=== PATIENT | female | born 1990 | race Caucasian/White ===

== ENCOUNTER 2024-01-16 08:40 | Day surgery (SDC) | payer OTHER, SELFPAY ==
[2024-01-16] VITALS (18 sets, daily range): BP systolic 105–156; BP diastolic 55–83; PULSE 63–97; RESP 12–20; TEMP 36.4–36.8; O2SAT 96–100
--- NOTE | ~2024-01-16 | US_ITS ---
EXAMINATION: US OB <=14 wk fetus w TV DATE: 01/16/2024 10:55 INDICATION: Left-sided pelvic pain. Positive test. TECHNIQUE: Real-time pelvic ultrasound utilizing both a transvaginal and transabdominal probe was pe rformed. The interpreting radiologist was not present for the study. COMPARISON: None. FINDINGS: The uterus measures 7.7 x 3.6 x 3.8 cm. There is no evident intrauterine gestational sac. The right ovary measures 2.6 x 2.3 x 1.3 cm. 6 mm anechoic follicle at the right ovary along with int ernal vascular flow on color Doppler. The left ovary measures 3.4 x 2.4 x 3.3 cm. 1.7 cm centrally an echoic thick-walled likely corpus luteum cyst along with a few subcentimeter anechoic follicles in th e left ovary. There is an additional approximately 1.8 x 1.5 x 1.5 cm hypoechoic mass with 4 mm centr ally anechoic region situated between the left ovary and the uterus. There is a small amount of free fluid in the cul-de-sac which appears relatively anechoic but also at the bilateral adnexa and anteri or to the uterine fundus where there are low-level echoes suggesting possible complex fluid or hemope ritoneum. IMPRESSION: 1. No evident intrauterine gestational sac for which differential would include early, failed or ecto pic . There is a 1.8 cm hypoechoic, centrally anechoic mass situated between the left ovary and the uterus along raising concern for ectopic with greater than typical amount of free f luid in the pelvis with a few low-level echoes which also raises concern for secondary hemoperitoneum . Dr. Lopez discussed these findings with Dr. Marcia Valdivia at 11:13 AM. Reviewed, dictated and finalized at location B. IMPRESSION: 1. No evident intrauterine gestational sac for which differential would include early, failed or ectopic . There is a 1.8 cm hypoechoic, centrally an echoic mass situated between the left ovary and the uterus along raising concer n for ectopic with greater than typical amount of free fluid in the p tammy with a few low-level echoes which also raises concern for secondary hemop eritoneum. Dr. Lopez discussed these findings with Dr. Marcia Valdivia at 11:13 AM.
[2024-01-16 09:10] LABS: Basophils Percent Auto 0.4 % (0.2-1.2); Eosinophils Absolute Auto 0.1 K/mm3 (0-0.3); Eosinophils Percent Auto 0.9 % (0-4.4); Hematocrit 40.2 % (37.0-47.0); Hemoglobin 12.6 g/dL (12.0-15.0); Immature Granulocyte Absolute 0.01 K/mm3 (0.00-0.031); Immature Granulocyte Percent A 0.1 % (0-0.5); Lymphocytes Percent Auto 23.6 % (18.3-44.2); Mean Corpuscular HGB Conc 31.3 g/dl (32-36); Mean Corpuscular Hemoglobin 28.5 pg (26-34); Mean Platelet Volume 9.7 fl (7.4-10.4); Monocytes Absolute Auto 0.6 K/mm3 (0.1-0.6); Neutrophils Absolute Auto 4.5 K/mm3 (1.3-6.7); Platelet Count Result 359 k/mm3 (150-375); Red Blood Count 4.42 M/mm3 (4.2-5.4); Red Cell Distribution Width 13.2 % (11.5-14.5); White Blood Count 6.8 K/mm3 (4.5-10.0)
[2024-01-16 09:14] LABS: BEDSIDEPREGUCG Positive (Negative)
[2024-01-16 09:20] LABS: Alanine Aminotransferase 27 U/L (6-35); Albumin Level 4.1 g/dL (3.5-5.1); Alkaline Phosphatase 89 U/L (38-126); Anion Gap 9 mmol/L (4-12); Aspartate Amino Transferase 33 U/L (14-36); Bilirubin,Total 0.2 mg/dL (0.2-1.3); Blood Urea Nitrogen 8 mg/dL (7-17); Calcium 9.1 mg/dL (8.4-10.2); Carbon Dioxide 27 mmol/L (22-30); Chloride 100 mmol/L (98-107); Estimated CRCL calculation 157 ml/min; Estimated Glomerular Filt Rate > 60; Glucose 99 mg/dL (65-110); Lipase 44 U/L (23-300); Potassium 4.1 mmol/L (3.4-5.0); Sodium 136 mmol/L (137-145)
[2024-01-16 09:25] LABS: Bacteria Urine None Seen /hpf; Non Pathogenic Casts 0-2; RBC Urine >100 /hpf (0-2); Squamous Epithelial Cell Urine None Seen /hpf (Few); WBC Urine 0-5 /hpf (0-3)
[2024-01-16 09:47] LABS: Beta HCG Quantitative 258.94 mIU/ML
--- NOTE | 2024-01-16 09:58 | ED.ABDPAIN ---
HPI - Abdominal Pain General Chief Complaint: Abdominal Pain <STEVO Calzada Last Filed: 01/16/24 18:41> Stated Complaint: abd pain <STEVO Calzada Last Filed: 01/16/24 18:41> Time Seen by Provider: 01/16/24 09:06 <STEVO Calzada Last Filed: 01/16/24 18:41> Source: patient <STEVO Calzada Last Filed: 01/16/24 18:41> Mode of arrival: ambulatory <STEVO Calzada Last Filed: 01/16/24 18:41> Limitations: no limitations <STEVO Calzada Last Filed: 01/16/24 18:41> History of Present Illness HPI narrative: This is a 33 year old that presents to the ER for left lower quadrant abdominal pain. Ongoing over the last couple of days. The pain is constant in nature and cramping. Reports she was concerned she may have an ovarian cyst. Her CHILD CARE DEVELOPMENT SPECIALIST is Dr. Neal. Found to have a positive test today. Reports she is currently bleeding. Reports some dysuria. Denies fever, vomiting, hematuria. <Marcai Valdivia PA-C - Last Filed: 01/16/24 18:41> Related Data Home Medications: Home Medications Medication Instructions Recorded Confirmed albuterol sulfate 90 mcg/actuation 1 puff inhalation Q4H PRN 02/06/20 07/24/23 aerosol inhaler gtcevjpd-vgp-nlhf-FA-Ca carb-vit K 1 tablet PO DAILY 07/18/22 07/24/23 18 mg iron-400 mcg-500 mg tablet (One-A-Day Womens Formula) <STEVO Calzada Last Filed: 01/16/24 18:41> Allergies/Adverse Reactions: Allergies Allergy/AdvReac Type Severity Reaction Status Date / Time adhesive Allergy Mild Rash Verified 01/16/24 14:06 bacitracin Allergy Mild Rash Verified 01/16/24 14:06 [From Neosporin Plus PainRelief(miri)] neomycin Allergy Mild Rash Verified 01/16/24 14:06 [From Neosporin Plus PainRelief(miri)] polymyxin B Allergy Mild Rash Verified 01/16/24 14:06 [From Neosporin Plus PainRelief(miri)] pramoxine Allergy Mild Rash Verified 01/16/24 14:06 [From Neosporin Plus PainRelief(miri)] codeine Allergy Unknown Rash Verified 01/16/24 14:06 drospirenone [From [facility] (28)] Allergy Unknown Fainting Verified 01/16/24 14:06 ethinyl estradiol Allergy Unknown Fainting Verified 01/16/24 14:06 [From [facility] (28)] fentanyl Allergy Unknown Itching Verified 01/16/24 14:06 <Marcia Valdivia PA-C - Last Filed: 01/16/24 18:41> Review of Systems Review of Systems: CONSTITUTIONAL: Denies fever GASTROINTESTINAL: Reports abdominal pain. Denies nausea, vomiting, or diarrhea. GENITOURINARY: Reports dysuria. Denies hematuria. <Marcia Valdivia PA-C - Last Filed: 01/16/24 18:41> All systems reviewed & are unremarkable except as noted in HPI and below <Marcia Valdivia PA-C - Last Filed: 01/16/24 18:41> PMFSH Past Medical History Medical History: Medical History Back abscess cyst removed from back Headache Obesity (BMI 30.0-34.9) <Marcia Valdivia PA-C - Last Filed: 01/16/24 18:41> Surgical History Surgical History: Surgical History H/O sinus surgery Hx of cholecystectomy <Marcia Valdivia PA-C - Last Filed: 01/16/24 18:41> Family History Family History: Family History Mother Diabetes mellitus Grandparent Diabetes mellitus Cancer Grandparent Cancer <STEVO Calzada Last Filed: 01/16/24 18:41> Social History Social History: Social History Smoking status: Never smoker Second hand tobacco smoke exposure: Yes Alcohol intake: current Drinks per week: 3 Substance use: never Substance use type: does not use Do You Feel Safe in your Home?: Yes Lack of Transportation: No Lack of Food: Never True Current Housing: I Have Housing Concerned About Future Housing:
[2024-01-16 10:00] LABS: Add Urine Microscopic? YES; Appearance Urine Clear (Clear); Bilirubin Urine Negative (Negative); Blood Urine 3+ (Negative); Glucose Urine UA Negative (Negative); Ketones Urine Negative (Negative); Leukocyte Esterase Ur Trace LEU/UL (Negative); Nitrate Urine Negative (Negative); Protein Urine Trace mg/dL (Negative); Specific Grav Ur 1.005 (1.001-1.035); Urobilinogen Urine 0.2 mg/dL (<2.0)
[2024-01-16 10:02] LABS: Color Urine Light Red (Yellow)
--- NOTE | 2024-01-16 10:32 | PC.NURSE ---
Pt to U/S via w/c at this time. remains at bedside.
--- NOTE | 2024-01-16 13:34 | PC.NURSE ---
Report given to preop RN at this time. Patient will go to Preop Rm 10
--- NOTE | 2024-01-16 14:09 | PM.IMHP ---
H&P: HPI History of Present Illness Date/Time: 01/16/24 14:09 33-year-old female 002 currently on norethindrone for control presents emergency room with left lower quadrant pain. Upon evaluation was found to have hCG of approximately 250 and left potential tubal enlargement. She is in fair amount of discomfort, as also had some irregular bleeding. Denies nausea vomiting, dysuria frequency or urgency. Chief Complaint: abdominal pain Review of Systems Review of Systems: All systems reviewed & are unremarkable except as noted in HPI and below PMFSH Past Medical History Medical History Back abscess cyst removed from back Headache Obesity (BMI 30.0-34.9) Surgical History Surgical History H/O sinus surgery Hx of cholecystectomy Family History Family History Mother Diabetes mellitus Grandparent Diabetes mellitus Cancer Grandparent Cancer Social History Social History Smoking status: Never smoker Second hand tobacco smoke exposure: Yes Alcohol intake: current Drinks per week: 3 Substance use: never Substance use type: does not use Do You Feel Safe in your Home?: Yes Lack of Transportation: No Lack of Food: Never True Current Housing: I Have Housing Concerned About Future Housing: No Difficulty Paying Gas/Electric Bills: No Difficulty Paying for Meds: No Currently Unemployed: No Education: High School Diploma/GED Difficulty w/ Childcare or Family Care: No Living arrangements: other Additional living arrangements comments: Occupation/Education: occupation 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 Gender identity (if verbalized by the patient): Female Sexual Orientation (if Verbalized by the Patient): Straight or Heterosexual Meds Home Medications and Allergies Home Medications Medication Instructions Recorded Confirmed Type albuterol sulfate 90 mcg/actuation 1 puff inhalation Q4H PRN 02/06/20 07/24/23 History aerosol inhaler mxhprczn-xfh-vdvc-FA-Ca carb-vit K 1 tablet PO DAILY 07/18/22 07/24/23 History 18 mg iron-400 mcg-500 mg tablet (One-A-Day Womens Formula) norethindrone (contraceptive) 0.35 0.35 mg PO DAILY #84 tabs 07/24/23 07/24/23 Rx mg tablet Allergies Allergy/AdvReac Type Severity Reaction Status Date / Time adhesive Allergy Mild Rash Verified 01/16/24 14:06 bacitracin Allergy Mild Rash Verified 01/16/24 14:06 [From Neosporin Plus PainRelief(miri)] neomycin Allergy Mild Rash Verified 01/16/24 14:06 [From Neosporin Plus PainRelief(miri)] polymyxin B Allergy Mild Rash Verified 01/16/24 14:06 [From Neosporin Plus PainRelief(miri)] pramoxine Allergy Mild Rash Verified 01/16/24 14:06 [From Neosporin Plus PainRelief(miri)] codeine Allergy Unknown Rash Verified 01/16/24 14:06 drospirenone [From ANITA (28)] Allergy Unknown Fainting Verified 01/16/24 14:06 ethinyl estradiol Allergy Unknown Fainting Verified 01/16/24 14:06 [From ANITA (28)] fentanyl Allergy Unknown Itching Verified 01/16/24 14:06 Vital Signs Vital Signs - 24 hr 01/16/24 08:45 01/16/24 11:18 01/16/24 12:00 Temperature 97.6 F 97.8 F Pulse Rate 72 66 78 Respiratory Rate 16 20 16 Blood Pressure 156/83 H 131/72 135/81 Pulse Oximetry 99 100 100 Exam Const: General: cooperative and healthy appearing Resp: Effort & Inspection: normal respiratory effort Auscultation: clear to auscultation bilaterally Cardio: Rate: regular rate Rhythm: regular rhythm GI: Inspection: normal to inspection GI Palp: Yes abdominal tenderness ( Left lower quadrant) Auscultation: normal bowel sounds H&P: Results Labs Labs: Short CBC 01/16/24 Range/Units 09:04
--- NOTE | 2024-01-16 14:14 | WPDANESEPPF ---
Anes - Initial Pre Proc Eval Procedure: Operation Date: 01/16/24 15:00 Proposed Procedures p Laparoscopy with Salpingectomy for Ectopic - Lukasz Neal MD Date/Time: 01/16/24 14:14 Surgeon: Lukasz Neal MD Pre Op Diagnosis: abd pain Patient Data Age: 33 Gender: F Height: 1.73 m Weight: 120 kg Last Vital Signs Temp 36.8 C 01/16/24 14:00 Pulse 69 01/16/24 14:00 Resp 14 01/16/24 14:00 BP 117/70 01/16/24 14:00 Pulse Ox 100 01/16/24 14:00 O2 Del Method Room Air 01/16/24 14:00 Allergies Allergy/AdvReac Type Severity Reaction Status Date / Time adhesive Allergy Mild Rash Verified 01/16/24 14:06 bacitracin Allergy Mild Rash Verified 01/16/24 14:06 [From Neosporin Plus PainRelief(miri)] neomycin Allergy Mild Rash Verified 01/16/24 14:06 [From Neosporin Plus PainRelief(miri)] polymyxin B Allergy Mild Rash Verified 01/16/24 14:06 [From Neosporin Plus PainRelief(miri)] pramoxine Allergy Mild Rash Verified 01/16/24 14:06 [From Neosporin Plus PainRelief(miri)] codeine Allergy Unknown Rash Verified 01/16/24 14:06 drospirenone [From [facility]ITA (28)] Allergy Unknown Fainting Verified 01/16/24 14:06 ethinyl estradiol Allergy Unknown Fainting Verified 01/16/24 14:06 [From [facility] (28)] fentanyl Allergy Unknown Itching Verified 01/16/24 14:06 Home Medications Medication Instructions Recorded Confirmed Type albuterol sulfate 90 mcg/actuation 1 puff inhalation Q4H PRN 02/06/20 07/24/23 History aerosol inhaler wglolfsh-rsh-wizz-FA-Ca carb-vit K 1 tablet PO DAILY 07/18/22 07/24/23 History 18 mg iron-400 mcg-500 mg tablet (One-A-Day Womens Formula) norethindrone (contraceptive) 0.35 0.35 mg PO DAILY #84 tabs 07/24/23 07/24/23 Rx mg tablet Laboratory Tests 01/16/24 01/16/2401/15/24 09:04 09:11 09:12 WBC 6.8 K/mm3 (4.5-10.0) RBC 4.42 M/mm3 (4.2-5.4) Hgb 12.6 g/dL (12.0-15.0) Hct 40.2 % (37.0-47.0) MCV 91.0 fl (80-100) MCH 28.5 pg (26-34) MCHC 31.3 L g/dl (32-36) RDW 13.2 % (11.5-14.5) Plt Count 359 k/mm3 (150-375) MPV 9.7 fl (7.4-10.4) Immature Gran % (Auto) 0.1 % (0-0.5) Neut % (Auto) 66.0 % (45.5-73.1) Lymph % (Auto) 23.6 % (18.3-44.2) [place]kins % (Auto) 9.0 H % (2.6-8.5) Eos % (Auto) 0.9 % (0-4.4) Baso % (Auto) 0.4 % (0.2-1.2) Lymph # (Auto) 1.60 K/mm3 (0.9-3.2) Tompkins # (Auto) 0.6 K/mm3 (0.1-0.6) Eos # (Auto) 0.1 K/mm3 (0-0.3) Baso # (Auto) 0.0 K/mm3 (0.0-0.1) Abs Immat Gran (auto) 0.01 K/mm3 (0.00-0.031) Absolute Neuts (auto) 4.5 K/mm3 (1.3-6.7) Absolute Nucleated RBC 0.000 K/mm3 (0.0-0.012) Nucleated RBC % 0.0 % (0.0-0.2) Sodium 136 L mmol/L (137-145) Potassium 4.1 mmol/L (3.4-5.0) Chloride 100 mmol/L (98-107) Carbon Dioxide 27 mmol/L (22-30) Anion Gap 9 mmol/L (4-12) BUN 8 mg/dL (7-17) Creatinine 0.60 L mg/dL (0.7-1.0) Estim Creat Clear Calc 157 ml/min Estimated GFR > 60 (59 - ) Glucose 99 mg/dL (65-110) Calcium 9.1 mg/dL (8.4-10.2) Total Bilirubin 0.2 mg/dL (0.2-1.3) AST 33 U/L (14-36) ALT 27 U/L (6-35) Alkaline Phosphatase 89 U/L (38-126) Total Protein 8.0 g/dL (6.3-8.2) Albumin 4.1 g/dL (3.5-5.1) Lipase 44 U/L (23-300) Beta HCG, Quant 258.94 mIU/ML Urine Color Light red H (Yellow) Urine Appearance Clear (Clear) Urine pH 8.0 (5.0-9.0) Ur Specific [place] 1.005 (1.001-1.035) Urine Protein Trace mg/dL (Negative) Urine Glucose (UA) Negative mg/dL (Negative)
--- NOTE | 2024-01-16 14:14 | WPDHPUPDATE1 ---
History and Physical Update Update Date/Time: 01/16/24 14:14 History and Physical has been reviewed, including an updated exam of the patient. There are NO changes in the patient's condition. Risks, benefits, and alternatives have been discussed and questions answered. Patient agrees to proceed with procedure.
[2024-01-16] MEDS: LACTATED RINGERS 1,000 ML 30 ML IV CONT ×3 (14:30→17:30)
--- NOTE | 2024-01-16 15:51 | P.OP_ITS ---
Procedure Note - Detailed Date of Procedure 01/16/24 Pre-op Diagnosis abd pain Post-op Diagnosis Other (Left tubal ectopic ) Procedure Performed 1. Diagnostic laparoscopy 2. Left salpingectomy Surgeon Lukasz Neal MD Anesthesia General Findings uterus tubes and ovaries normal without abnormality, other than tubal noted in the left tube Description of Procedure patient prepped draped usual manner for this procedure. Abdominal trocar sites were marked and placed under direct visualization. This point placed was placed in Trendelenburg position and evaluation the pelvis did reveal right tubular without abnormality uterus without abnormality left ovary without abnormality and the left tube with 2-3 cm ectopic . Using the Harmonic scalpel the left tube mesial salpinx was cauterized and cut and the tube was removed without difficulty. There was no bleeding and no evidence of other abnormality. The tubal segment was removed through the right lower quadrant. The irrigation was undertaken with minimal bleeding but this was removed. Also revaluation of the mesial salpinx again inspected with no evidence of bleeding. Trocars removed after the gas was allowed to escape, and the trocar sites were approximated us ing 4-0 Monocryl suture. Patient was then sent to recovery room in stable condition. Estimated Blood Loss 50 Drains No Packing No Pathology Yes Complications No immediate complications Condition Stable Disposition PACU [facility] Billing Surgery - Charge Forward: Surgery Billing
[2024-01-16] MEDS: HYDROmorphone HCL INJ (*CRX) 1 MG/ML SYR 0.5 MG IV PUSH ×4 (16:01→16:41)
[2024-01-16] MEDS: ONDANSETRON INJ 4 MG/2 ML VIAL IV PUSH (16:54)
[2024-01-16] MEDS: diphenhydrAMINE HCl INJ 50 MG/ML VIAL 12.5 MG IV PUSH (17:00)
[2024-01-16] MEDS: SCOPOLAMINE 1 MG PATCH 1 PATCH TRANSDERM (17:27)
[2024-01-16] MEDS: HALOPERIDOL LACTATE 5 MG/ML VIAL 1 MG IV PUSH (17:41)
[2024-01-16] MEDS: METOCLOPRAMIDE HCL INJ 10 MG/2 ML VIAL IV PUSH (18:05)
== END 2024-01-16 19:55 | disposition home or self-care (01) ==
LOC: ANHED 12:03 → ANHSURGERY 12:06
PROVIDERS: Emergency Medicine; Emergency Provider Physician Assistant; PCP Family Medicine Sports Medicine; Visit Provider Obstetrics & Gynecology
PROC: (CPT 49320; principal; 2024-01-16 15:00)
DX: O00.102 Left tubal pregnancy without intrauterine pregnancy (principal); G89.18 Other acute postprocedural pain; Z79.51 Long term (current) use of inhaled steroids; Z98.890 Other specified postprocedural states; Z90.49 Acquired absence of other specified parts of digestive tract; Z80.9 Family history of malignant neoplasm, unspecified
CPT/HCPCS: 59151; 36415; 76801; 76817; 80053; 81001; 81025; 83690; 84702; 85025; 85461; 86850; 86900; 86901; 88305; 99285; A9270; J1100; J1170; J1200; J1630; J1885; J2250; J2405; J2704; J2765; J3010; J7030; J7120

== ENCOUNTER 2024-10-13 17:31 | Emergency (ER) | payer OTHER, SELFPAY ==
--- NOTE | ~2024-10-13 | XR_ITS ---
EXAMINATION: XR chest 2V Exam Date/Time: 10/13/2024 17:50 CDT HISTORY: cough Comparison: None. RESULT: Lines, tubes, and devices: None. Lungs and pleura: Clear. Cardiomediastinal silhouette: Normal. Other: No acute osseous or upper abdominal finding. IMPRESSION: No acute cardiopulmonary process. Reviewed, dictated and finalized at location K.
--- NOTE | ~2024-10-13 | CT_ITS ---
EXAMINATION: CT brain wo con DATE: 10/13/2024 18:02 INDICATION: headache . TECHNIQUE: Computed tomography (CT) of the head was performed without intravenous contrast. The mA wa s adjusted according to patient size. Iterative reconstruction technique was employed. The dose-lengt h product was 605.33 mGy-cm. COMPARISON: None. FINDINGS: No acute intracranial hemorrhage or extra-axial fluid collection. No hydrocephalus, mass, or herniation. No acute ischemic infarct. Unremarkable dural venous sinus attenuation. No acute osseous abnormality. The aerated spaces are clear. IMPRESSION: No acute intracranial process. Reviewed, dictated and finalized at location K.
--- NOTE | ~2024-10-13 | CT_ITS ---
EXAMINATION: CTA chest DATE: 10/13/2024 21:26 INDICATION: Hemoptysis TECHNIQUE: Computed tomography angiography of the chest was performed with 200 mL Omnipaque-350 intra venous contrast, in the arterial phase (a second injection was required due to suboptimal bolus timin g in the initial scan). Automated exposure control and iterative reconstruction technique were employ ed. The dose-length product was 1828.79 mGy-cm. COMPARISON: X-ray chest, same date. FINDINGS: CHEST: Thoracic aorta: No significant dilation or calcification. Lung parenchyma and airways: Lungs and airways are clear. Thoracic inlet, axillae and chest wall: No thyroid or soft tissue mass. No axillary lymphadenopathy. Mediastinum: No mass or lymphadenopathy. Although not performed for the diagnosis of pulmonary emboli sm, the central pulmonary arteries are well seen and no central pulmonary is detected. There is motio n obscuration of the segmental left lower lobe pulmonary arteries. No segmental pulmonary emboli dete cted in the remaining lobes. Subsegmental pulmonary arteries not well visualized given the scan techn ique. Heart and pericardium: Normal heart size. No pericardial effusion. No CT evidence of right heart stra in. Coronary artery calcifications: Absent. Pleura: No effusion or mass. Upper abdomen: No significant finding. Thoracic bones: No acute osseous finding in the chest. IMPRESSION: No acute thoracic process detected. Reviewed, dictated and finalized at location K.
[2024-10-13 17:34] VITALS: BP 142/85; PULSE 83; RESP 16; TEMP 36.9; O2SAT 100
--- OUTSIDE RECORDS SUMMARY | 2024-10-13 17:34 | XMS_ITS | Clinical Summary ---
Author Organization [facility] [employer] Address [address] [place] [address] Care Team Providers Care Slater Apprentice Name Role Phone Jamal Em MD Primary Care Provider [phone] Source Comments [facility] [employer],non-owned Affiliates and Associated Physician Practices is amultiple site organization consisting of ambulatory clinics and hospital sitesin [place], [place], [place] and [place]. This disclosure is being madepursuant to the Care Everywhere program and may not contain all information available regarding this patient. Last updated 18.[facility] [employer] Allergies Active Allergy Reactions Criticality Noted Date Comments Latex Rash,Itching Medium 11/21/2018 Isopropyl Alcohol Rash Medium 08/15/2016 Drospirenone-Ethinyl Estradiol Systemic 08/15 Medications * Be aware that medications may not be up to date on this document. Alwaysverify current medications with the patient. NORETHINDRONE PO Act haley Active Problems No known active problems Social History Tobacco Use Types Packs/Day Years Used Date Smoking Tobacco: Never Smokeless Tobacco: Never Comments:passive smoke expos ure Comments No Sex and Gender Information Value Date Recorded Sex Assigned at Not on file Legal Sex Female 9:51 AM CDT Gender Identity Not on file Sexual Orientation Not on file Last Filed Vital Signs Vital Sign Reading Time Taken Comments Blood Pressure 116/72 06/08/2019 2:48 PM STEAM ROOM ATTENDANT Pulse 80 06/08/2019 2:48 PM STEAM ROOM ATTENDANT Temperature 36.9 C (98.5 F) 06/08/2019 2:48 PM STEAM ROOM ATTENDANT Respiratory Rate 16 06/08/2019 2:48 PM STEAM ROOM ATTENDANT Oxygen Saturation 98% 06/08/2019 2:48 PM STEAM ROOM ATTENDANT Inhaled Oxygen Concentration - - Weight 99.8 kg (220 lb) 06/08/2019 2:48 PM STEAM ROOM ATTENDANT Height 172.7 cm (5' 8) 06/08/2019 2:48 PM STEAM ROOM ATTENDANT Body Mass Index 33.45 06/08/2019 2:48 PM STEAM ROOM ATTENDANT Plan of Treatment Health Maintenance Due Date Last Done Comments PAP SMEAR 1992 HIV SCREENING 09/11/2007 HEPATITIS C SCREENING 09/06/2010 DTAP/TDAP/TD VACCINES (1 - Tdap) 09/11/2011 HEPATITIS B VACCINE (1 of 3 - 19+ 3-dose series) 09/11/2011 COVID-19 VACCINE ( - 2023-2 5 season) 2024 DEPRESSION SCREENING 05/07/2024 INFLUENZA VACCINE (Season Ended) 2025 ZOSTER VACCINE (1 of 2) 2042 HIB VACCINE Aged Out No longer eligi ble based on patient's age to complete this topic HPV VACCINE Aged Out No longer eligi ble based on patient's age to complete this topic MENINGOCOCCAL (Group B) VACC INE SHARED DECISION-MAKING Aged Out No longer eligibl e based on patient's age to complete this topic MENINGOCOCCAL GROUPS A/C/Y/W VACCINE Aged Out No longer eligible b ased on patient's age to complete this topic PNEUMOCOCCAL VACCINE Aged Out No long er eligible based on patient's age to complete this topic Insurance [facility] SELF PAY NO INSURANCE Member Subscriber Plan / Payer (Ef fective for All Dates) Name:Cecile Mayen Member ID:Not on file Relation to Subscriber:Not on file Name:CECILE MAYEN Subscriber ID:Not on file (Home) Address: [address] [place] [id number] Payer ID:Not on file Group ID:Not on file Type:Self Pay Address: [place], [place] Care Teams Slater Apprentice Relationship Specialty Start Date End Date Jamal Em MD [address] [place] [id number] PCP - General Family Medicine 08/15/16
--- OUTSIDE RECORDS SUMMARY | 2024-10-13 17:34 | XMS_ITS | Patient Health Record ---
Author Organization [facility] [place] ([address]) Address [address] [place] [address] Care Team Providers Care Supervisor Litharge Name Role Phone Nael Marin Primary Care Provider UnavailPiedad Montoya Unavailable [phone] [employer], Provider Unavailable Unavailab le Allergies Allergen (clinical drug ingredient) Drug/Non Drug Allergy documented on EMR Reaction Allergy Type Onset Date Status fentanyl fentaNYL pruritic red rash Drug Allergy Active drospirenone / ethinyl estradiol ANITA fainted Drug Allergy Active codeine Codeine pruritic red rash Drug Allergy Active Reason For Referral No Information Medications Medication SIG (Take, Route, Frequency, Duration) Notes Start Date End Date Status FLUTICASONE PROPIONATE 50 mcg/inh as directed in each nostril once a day for 30 day(s) Active TRIAMCINOLONE ACETONIDE TOPICAL 0.1% 1 winnie applied topically 3 times a day for 7 day(s) Active CETIRIZINE HYDROCHLORIDE 10 mg 1 tab(s) orally once a day Active Cetirizine HCl 10 MG 1 tab(s) orally onc e a day Active Fluticasone Propionate 50 MCG/ACT as directed in each nostril once a day for 30 day(s) Active Triamcinolone Acetonide 0.1 % 1 winnie applied topically 3 times a day for 7 day(s) Active NORETHINDRONE 0.35 mg 1 tab(s) orally on ce a day for 28 day(s) Active Norethindrone 0.35 MG 1 tab(s) orally on ce a day for 28 day(s) Active Social History Tobacco Use: Social History Observation Description Date Details (start date - stop date) Never Smoker NA - NA Smoking Smart Form: Question Answer Notes Are you a: never smoker Problems Problem Type SNOMED Code ICD Code Onset Dates Problem Status W/U Status Risk Notes Problem Chronic allergic conjunctivitis (80640842) Other chronic allergic conjunctivitis (H10.45) Active confirmed Problem Allergic rhinitis caused by pollen (disorder) (61691148) Allergic rhinitis due to pollen (J30.1) Active confirmed Problem Allergic rhinitis (22905414) Other allergic rhinitis (J30.89) Active confirmed Problem Allergic contact dermatitis caused by adhesive (disorder) (030096112) Allergic contact dermatitis due to adhesives (L23.1) Active confirmed Problem Dermatitis (368650159) Dermatitis, unspecified (L30.9) Active confirmed Problem Allergic rhinitis caused by animal hair and dander (912151298446842) Allergic rhinitis due to animal (cat) (dog) hair and dander (J30.81) Active confirmed Problem Allergic contact dermatitis caused by chemical (0005054436445793 3) Allergic contact dermatitis due to other chemical products (L23.5) Active confirmed Encounters Encounter Location Date Provider Diagnosis [address] [id number] 10/20/2023 Provider Ruchi Allergic contact dermatitis due to adhesives L23.1 and Allergic rhinitis due to pollen J30.1 Assessments Encounter Date Diagnosis (ICD Code) Assessment Notes Treatment Notes Treatment Clinical Notes Section Notes 10/20/2023 Allergic contact dermatitis due to adhesives (ICD-10 - L23.1) 10/20/2023 Allergic rhinitis due to pollen (ICD-10 - J30.1) Plan Of Treatment No Information Insurance Providers Payer Name Payer Address Payer Phone Subscriber Number Group Number Insured Name Patient Relationship to Insured Coverage Start Date Coverage End Date Maddy TOBIAS P.OSari [id number] QUAN Rubi [id number] Cecile Tapia Self - patient is the insured Medical (General) History Medical History History ICD Code Dermatitis, unspecified L30.9 Allergic rhinitis due to pollen J30.1 Allergic rhinitis due to pollen J30.1 Allergic rhinitis due to animal (cat) (d og) hair and dander J30.81 Other allergic rhinitis J30.89 Other chronic allergic conjunctivitis H1 0.45 Allergic contact dermatitis due to adhes meka L23.1 Surgical History Surgery Date(Month/Year) Cholecystectomy 08/19/2019 Removal of blockage in sinus cavities Hospitalization History Reason Date(Month/Year) Cholecystectomy 08/19/2019 Vaginal births 2007 and 2017
--- OUTSIDE RECORDS SUMMARY | 2024-10-13 17:34 | XMS_ITS ---
Author Organization [facility] [place] ([address]) Address [address] [place] [address] Care Team Providers Care Professor Of Religion Name Role Phone TomasNael Primary Care Provider Unavailabl e Piedad Rodriguez Unavailable [phone] ZZ-Migration, Provider Unavailable Unavailab le Allergies Allergen (clinical drug ingredient) Drug/Non Drug Allergy documented on EMR Reaction Allergy Type Onset Date Status fentanyl fentaNYL pruritic red rash Drug Allergy Active drospirenone / ethinyl estradiol ANITA fainted Drug Allergy Active codeine Codeine pruritic red rash Drug Allergy Active [facility] Conversion Encounter Medications Medication SIG (Take, Route, Frequency, Duration) Notes Start Date End Date Status Cetirizine HCl 10 MG 1 tab(s) orally onc e a day Active Fluticasone Propionate 50 MCG/ACT as directed in each nostril once a day for 30 day(s) Active Triamcinolone Acetonide 0.1 % 1 winnie applied topically 3 times a day for 7 day(s) Active Norethindrone 0.35 MG 1 tab(s) orally on ce a day for 28 day(s) Active Encounters Encounter Location Date Provider Diagnosis GENE Armas [address] [place] [id number] 10/20/2023 Provider ZZ-Migration Allergic contact dermatitis due to adhesives L23.1 and Allergic rhinitis due to pollen J30.1 Assessments Encounter Date Diagnosis (ICD Code) Assessment Notes Treatment Notes Treatment Clinical Notes Section Notes 10/20/2023 Allergic contact dermatitis due to adhesives (ICD-10 - L23.1) 10/20/2023 Allergic rhinitis due to pollen (ICD-10 - J30.1) Plan Of Treatment Medication Medication Name Sig Start Date Stop Date Notes Cetirizine HCl 10 MG 1 tab(s) orally once a day Fluticasone Propionate 50 MCG/ACT as directed in each nostril once a day for 30 day(s) Triamcinolone Acetonide 0.1 % 1 winnie appl ied topically 3 times a day for 7 day(s) Progress Notes * Cecile MAYEN FDOB:[birth year] (34 yo F)Acc No.[id number]:10/20/2023 Patient: [address] Provider: Rose Avila :1990 A ge:33 Y S ex:Female Date:10/20/2023 Address:[address] [place], [place] [id number] Pcp:Nael Marin Subjective: * Chief Complaints: * [address] [facility] Conversion Encounter. * Medical History: * Medications: T aking Norethindrone 0.35 MG Tablet 1 tab(s) orally once a day * Allergies: Y [place]: fainted, Codeine: pruritic red rash, fentaNYL: pruritic red rash. Objective: * Vitals: Assessment: * Assessment: 1. A llergic contact dermatitis due to adhesives - L23.1 2 . A llergic rhinitis due to pollen - J30.1 Plan: * Treatment: 2. A llergic rhinitis due to pollen Continue Fluticasone Propionate Suspension, 50 MCG/ACT, as directed, in each nostril, once a day, 30 day(s); C ontinue Cetirizine HCl Tablet, 10 MG, 1 tab(s), orally, once a day. * Billing Information: * Visit Code: * Procedure Codes: * Electronic signature of Luis PAYAN-Migration on 10/13/2024 at 05:34 PM CDT Sign off status: Pending * Provider: Rose Avila Date: 0 10/20/2023 Generated for Jessica duggan/Zion/Keshiaitting on: 0 10/13/2024 05:34 PM CDT
--- OUTSIDE RECORDS SUMMARY | 2024-10-13 17:34 | XMS_ITS | Patient Health Record ---
Author Organization [facility] Address [address] [place] [address] Care Team Providers Care Electric Power Line Examiner Name Role Phone Jamal Vasquez Primary Care Provider [phone] Reason For Referral No Information Plan Of Treatment No Information Insurance Providers Payer Name Payer Address Payer Phone Subscriber Number Group Number Insured Name Patient Relationship to Insured Coverage Start Date Coverage End Date [employer] [address] [place], [place] [phone] [id number] Cecile Tapia Self - patient is the insured 0
--- NOTE | 2024-10-13 17:47 | ED.GENADULT ---
HPI - General Adult General Chief complaint: Unspecified <Rosemary Nelson, WHOLESALE BUYER - Last Filed: 10/13/24 17:52> Stated complaint: coughed so hard they coughed up blood <Rosemary Nelson WHOLESALE BUYER - Last Filed: 10/13/24 17:52> Time Seen by Provider: 10/13/24 17:40 <Rosemary Nelson WHOLESALE BUYER - Last Filed: 10/13/24 17:52> Focused HPI: Patient is a female who presents to the ER with concerns of a 2 day history of petechiae on her face. She reports yesterday she coughed so hard that I broke blood vessels all over my face. Patient reports since then she has had intermittent coughing, hemoptysis, and a headache. She denies any recent fevers, other areas of bleeding, or chest pain. Patient denies any other medical history relevant to this ER visit. She does reports she was in the sun yesterday and has sunburn on her bilateral arms. GENERAL: Well-appearing, well-nourished, and in no acute distress. Tearful HEAD: Normocephalic, atraumatic. Petechiae to bilateral cheeks. CHEST: Clear to auscultation. ?No respiratory distress. HEART: Regular rate and rhythm.? NEURO: ?Alert and oriented x3. Patient screened in triage and initial orders placed.? ?Additional care and disposition to be based upon?diagnostic testing and treatment. <Rosemary Nelson WHOLESALE BUYER - Last Filed: 10/13/24 17:52> Focused HPI: Patient is a female who presents to the ER with concerns of a 2 day history of petechiae on her face. She reports yesterday she coughed so hard that I broke blood vessels all over my face. Patient reports since then she has had intermittent coughing, mild streaks of blood in her mucus, and a headache. She denies any recent fevers, other areas of bleeding, or chest pain. Patient denies any other medical history relevant to this ER visit. She does reports she was in the sun yesterday and has sunburn on her bilateral arms. GENERAL: Well-appearing, well-nourished, and in no acute distress. Tearful HEAD: Normocephalic, atraumatic. Petechiae to bilateral cheeks. CHEST: Clear to auscultation. ?No respiratory distress. HEART: Regular rate and rhythm.? NEURO: ?Alert and oriented x3. Patient screened in triage and initial orders placed.? ?Additional care and disposition to be based upon?diagnostic testing and treatment. <Marv Corley MD - Last Filed: 10/13/24 23:00> Related Data Home medications: Home Medications ?Medication ?Instructions ?Recorded ?Confirmed ?Last Taken ?Type albuterol sulfate 90 mcg/actuation 1 puff inhalation Q4H PRN 02/06/20 09/02/24 Unknown History aerosol inhaler cholecalciferol (vitamin D3) 50 50 mcg PO DAILY 09/02/24 09/02/24 Unknown History mcg (2,000 unit) capsule omega [id number]-qmu-pun-fish oil 100 cap PO 09/02/24 09/02/24 Unknown History mg-160 mg-1,000 mg capsule (Fish Oil) <Rosemary Nelson, AG - Last Filed: 10/13/24 17:52> Allergies/adverse reactions: Allergies Allergy/AdvReac Type Severity Reaction Status Date / Time adhesive Allergy Mild Rash Verified 10/13/24 17:32 bacitracin (From Neosporin Allergy Mild Rash Verified 10/13/24 17:32 Plus PainRelief(miri)) neomycin (From Neosporin Allergy Mild Rash Verified 10/13/24 17:32 Plus PainRelief(miri)) polymyxin B (From Neosporin Allergy Mild Rash Verified 10/13/24 17:32 Plus PainRelief(miri)) pramoxine (From Neosporin Allergy Mild Rash Verified 10/13/24 17:32 Plus PainRelief(miri)) codeine Allergy Unknown Rash Verified 10/13/24 17:32 drospirenone (From ANITA (28)) Allergy Unknown Fainting Verified 10/13/24 17:32 ethinyl estradiol (From ANITA Allergy Unknown Fainting Verified 10/13/24 17:32 (28)) fentanyl Allergy Unknown Itching Verified 10/13/24 17:32 <Rosemary Nelson, AG - Last Filed: 10/13/24 17:52> PMFSH Past Medical History Medical History: Medical History Back abscess cyst removed from back Obesity (BMI 30.0-34.9) Headache <Rosemary Nelson APRN - Last Filed: 10/13/24 17:52> Surgical History Surgical History: Surgical History History of gynecological procedure (01/16/24) Diagnostic laparoscopy Left salpingectomy ; Ectopic H/O sinus surgery Hx of cholecystectomy <Rosemary Nelson APRN - Last Filed: 10/13/24 17:52> Family History Family History: Family History Mother Diabetes mellitus Grandparent Diabetes mellitus Cancer Grandparent Cancer <Rosemary Nelson APRN - Last Filed: 10/13/24 17:52> Social History Social History: Social History (Updated 09/02/24 @ 13:43 by JOSE Santoro) Smoking status: Never smoker Second hand tobacco smoke exposure: Yes Alcohol intake: current Drinks per week: 1 Substance use: never Substance use type: does not use Do You Feel Safe in your Home?: Yes Lack of Transportation: No Lack of Food: Never True Current Housing: I Have Housing Concerned About Future Housing: No Difficulty Paying Gas/Electric Bills: No Difficulty Paying for Meds: No Currently Unemployed: No Education: High School Diploma/GED Difficulty w/ Childcare or Family Care: No Living arrangements: other Additional living arrangements comments: Occupation/Education: occupation 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 Head: atraumatic. EYES: EOMI, NOSE: Atraumatic NECK: Trachea midline RESPIRATORY: No increased rate of breathing clear to auscultation CARDIOVASCULAR: RRR, no peripheral edema ABDOMINAL: Non-distended soft nontender no guarding rebound MUSCULOSKELETAl: No obvious deformities NEURO: Alert. Moving 4/4 extremities SKIN:: Warm, dry. Normal color PSYCHIATRIC: Normal affect <Marv H. Zych, MD - Last Filed: 10/13/24 23:00> Course Vital Signs Vital signs: Vital Signs Temperature 98.5 F 10/13/24 17:34 Pulse Rate 83 10/13/24 17:34 Respiratory Rate 16 10/13/24 17:34 Blood Pressure 142/85 H 10/13/24 17:34 Pulse Oximetry 100 10/13/24 17:34 Oxygen Delivery Room Air 10/13/24 17:34 Temperature 98.4 F 10/13/24 21:57 Pulse Rate 60 10/13/24 21:57 Respiratory Rate 18 10/13/24 21:57 Blood Pressure 111/72 10/13/24 21:57 Pulse Oximetry 100 10/13/24 21:57 Oxygen Delivery Room Air 10/13/24 17:34 <Rosemary Nelson APRN - Last Filed: 10/13/24 17:52> Vital Signs Temperature 98.5 F 10/13/24 17:34 Pulse Rate 83 10/13/24 17:34 Respiratory Rate 16 10/13/24 17:34 Blood Pressure 142/85 H 10/13/24 17:34 Pulse Oximetry 100 10/13/24 17:34 Oxygen Delivery Room Air 10/13/24 17:34 Temperature 98.4 F 10/13/24 21:57 Pulse Rate 60 10/13/24 21:57 Respiratory Rate 18 10/13/24 21:57 Blood Pressure 111/72 10/13/24 21:57 Pulse Oximetry 100 10/13/24 21:57 Oxygen Delivery Room Air 10/13/24 17:34 <Marv Corley MD - Last Filed: 10/13/24 23:00> Medical Decision Making MDM Narrative Medical decision making narrative: -Course: 34-year-old female presenting with cough, headaches body aches and generally feeling unwell after going to a carnival. CTA of the chest was ordered as she states she had hemoptysis and is on hormone therapy. Unfortunately CTA did not completely visualized all segmental and subsegmental vessels, although there were no central PEs or evidence of right heart strain. Patient is not short of breath or tachycardic. In fact her HR is 60. Using shared decision making: I discussed the CT findings with patient. When I mention that clinically her presentation is more consistent with bronchitis and a viral illness she said that she usually gets bronchitis almost every year and that this does feel similar. We discussed the risks and benefits of further radiation to her chest and the patient has declined which I think is reasonable. Patient will be discharged with strict return precautions. -DDX includes but is not limited to: Bronchitis, viral syndrome, pneumonia, PE neoplasm <Marv Corley MD - Last Filed: 10/13/24 23:00> Vital Signs Vital Signs: Vital Signs Temperature 98.5 F 10/13/24 17:34 Pulse Rate 83 10/13/24 17:34 Respiratory Rate 16 10/13/24 17:34 Blood Pressure 142/85 H 10/13/24 17:34 Pulse Oximetry 100 10/13/24 17:34 Oxygen Delivery Room Air 10/13/24 17:34 Temperature 98.4 F 10/13/24 21:57 Pulse Rate 60 10/13/24 21:57 Respiratory Rate 18 10/13/24 21:57 Blood Pressure 111/72 10/13/24 21:57 Pulse Oximetry 100 10/13/24 21:57 Oxygen Delivery Room Air 10/13/24 17:34 <Rosemary Nelson WHOLESALE BUYER - Last Filed: 10/13/24 17:52> Vital Signs Temperature 98.5 F 10/13/24 17:34 Pulse Rate 83 10/13/24 17:34 Respiratory Rate 16 10/13/24 17:34 Blood Pressure 142/85 H 10/13/24 17:34 Pulse Oximetry 100 10/13/24 17:34 Oxygen Delivery Room Air 10/13/24 17:34 Temperature 98.4 F 10/13/24 21:57 Pulse Rate 60 10/13/24 21:57 Respiratory Rate 18 10/13/24 21:57 Blood Pressure 111/72 10/13/24 21:57 Pulse Oximetry 100 10/13/24 21:57 Oxygen Delivery Room Air 10/13/24 17:34 <Marv Corley MD - Last Filed: 10/13/24 23:00> Lab Data Result diagrams: 10/13/24 18:06 10/13/24 18:06 <Rosemary Nelson APRN - Last Filed: 10/13/24 17:52> Labs: Lab Results 10/13/24 10/13/24 10/13/24 Range/Units 18:06 20:08 20:47 WBC 6.3 (4.5-10.0) K/mm3 RBC 4.65 (4.2-5.4) M/mm3 Hgb 12.8 (12.0-15.0) g/dL Hct 41.2 (37.0-47.0) % MCV 88.6 (80-100) fl MCH 27.5 (26-34) pg MCHC 31.1 L (32-36) g/dl RDW 13.1 (11.5-14.5) % Plt Count 336 (150-375) k/mm3 MPV 9.6 (7.4-10.4) fl Immature Gran % (Auto) 0.2 (0-0.5) % Neut % (Auto) 57.6 (45.5-73.1) % Lymph % (Auto) 32.0 (18.3-44.2) % [place] % (Auto) 9.1 H (2.6-8.5) % Eos % (Auto) 0.5 (0-4.4) % Baso % (Auto) 0.6 (0.2-1.2) % Lymph # (Auto) 2.01 (0.9-3.2) K/mm3 [place] # (Auto) 0.6 (0.1-0.6) K/mm3 Eos # (Auto) 0.0 (0-0.3) K/mm3 Baso # (Auto) 0.0 (0.0-0.1) K/mm3 Abs Immat Gran (auto) 0.01 (0.00-0.031) K/mm3 Absolute Neuts (auto) 3.6 (1.3-6.7) K/mm3 Absolute Nucleated RBC 0.000 (0.0-0.012) K/mm3 Nucleated RBC % 0.0 (0.0-0.2) % Sodium 138 (137-145) mmol/L Potassium 3.8 (3.4-5.0) mmol/L Chloride 106 (98-107) mmol/L Carbon Dioxide 24 (22-30) mmol/L Anion Gap 8 (4-12) mmol/L BUN 7 (7-17) mg/dL Creatinine 0.63 L (0.7-1.0) mg/dL Estim Creat Clear Calc 147 ml/min Estimated GFR > 60 (59 - ) Glucose 95 (65-110) mg/dL Calcium 8.9 (8.4-10.2) mg/dL Total Bilirubin 0.3 (0.2-1.3) mg/dL AST 30 (14-36) U/L ALT 23 (6-35) U/L Alkaline Phosphatase 91 (38-126) U/L Total Protein 7.6 (6.3-8.2) g/dL Albumin 4.1 (3.5-5.1) g/dL POC Urine HCG, Qual Negative (Negative) Influenza A (RT-PCR) Negative (Negative) Influenza B (RT-PCR) Negative (Negative) RSV (RT-PCR) Negative (Negative) SARS-CoV-2 RNA (RT-PCR) Negative (Negative) <Rosemary Nelson, WHOLESALE BUYER - Last Filed: 10/13/24 17:52> Lab Results 10/13/24 10/13/24 10/13/24 Range/Units 18:06 20:08 20:47 WBC 6.3 (4.5-10.0) K/mm3 RBC 4.65 (4.2-5.4) M/mm3 Hgb 12.8 (12.0-15.0) g/dL Hct 41.2 (37.0-47.0) % MCV 88.6 (80-100) fl MCH 27.5 (26-34) pg MCHC 31.1 L (32-36) g/dl RDW 13.1 (11.5-14.5) % Plt Count 336 (150-375) k/mm3 MPV 9.6 (7.4-10.4) fl Immature Gran % (Auto) 0.2 (0-0.5) % Neut % (Auto) 57.6 (45.5-73.1) % Lymph % (Auto) 32.0 (18.3-44.2) % [place] % (Auto) 9.1 H (2.6-8.5) % Eos % (Auto) 0.5 (0-4.4) % Baso % (Auto) 0.6 (0.2-1.2) % Lymph # (Auto) 2.01 (0.9-3.2) K/mm3 [place] # (Auto) 0.6 (0.1-0.6) K/mm3 Eos # (Auto) 0.0 (0-0.3) K/mm3 Baso # (Auto) 0.0 (0.0-0.1) K/mm3 Abs Immat Gran (auto) 0.01 (0.00-0.031) K/mm3 Absolute Neuts (auto) 3.6 (1.3-6.7) K/mm3 Absolute Nucleated RBC 0.000 (0.0-0.012) K/mm3 Nucleated RBC % 0.0 (0.0-0.2) % Sodium 138 (137-145) mmol/L Potassium 3.8 (3.4-5.0) mmol/L Chloride 106 (98-107) mmol/L Carbon Dioxide 24 (22-30) mmol/L Anion Gap 8 (4-12) mmol/L BUN 7 (7-17) mg/dL Creatinine 0.63 L (0.7-1.0) mg/dL Estim Creat Clear Calc 147 ml/min Estimated GFR > 60 (59 - ) Glucose 95 (65-110) mg/dL Calcium 8.9 (8.4-10.2) mg/dL Total Bilirubin 0.3 (0.2-1.3) mg/dL AST 30 (14-36) U/L ALT 23 (6-35) U/L Alkaline Phosphatase 91 (38-126) U/L Total Protein 7.6 (6.3-8.2) g/dL Albumin 4.1 (3.5-5.1) g/dL POC Urine HCG, Qual Negative (Negative) Influenza A (RT-PCR) Negative (Negative) Influenza B (RT-PCR) Negative (Negative) RSV (RT-PCR) Negative (Negative) SARS-CoV-2 RNA (RT-PCR) Negative (Negative) <Marv Corley MD - Last Filed: 10/13/24 23:00> Discharge Plan Discharge Clinical Impression: Bronchitis <Rosemary Nelson APRN - Last Filed: 10/13/24 17:52> Patient Disposition: Home <Rosemary Nelson APRN - Last Filed: 10/13/24 17:52> Condition: Stable <Rosemary Nelson APRN - Last Filed: 10/13/24 17:52> Instructions: Antibiotic Form, Acute Bronchitis (ED) <Rosemary Nelson APRN - Last Filed: 10/13/24 17:52> Additional Instructions: You were seen emergency department for bronchitis. Please use Motrin and Tylenol for body aches and fevers. Please drink plenty of fluids. If you feel your condition is getting worse, you develop chest pain shortness of breath or or coughing up blood I want you to returned to the ED for re-evaluation <Rosemary Nelson APRN - Last Filed: 10/13/24 17:52> Patient Language: Belarusian <Rosemary Nelson APRN - Last Filed: 10/13/24 17:52> Prescriptions: No Action albuterol sulfate 90 mcg/actuation HFA aerosol inhaler 1 puff INHALATION Q4H PRN cholecalciferol (vitamin D3) 50 mcg (2,000 unit) capsule 50 mcg PO DAILY Fish Oil 100-160-1,000 mg capsule PO norethindrone (contraceptive) 0.35 mg tablet 0.35 mg PO DAILY Qty: 84 3RF <Rosemary Nelson APRN - Last Filed: 10/13/24 17:52> Follow-up/Referrals: PHYSICIAN NOT ON STAFF,NONSTAFF [Primary Care Provider] - <Rosemary Nelson APRN - Last Filed: 10/13/24 17:52>
[2024-10-13 18:12] LABS: Basophils Percent Auto 0.6 % (0.2-1.2); Eosinophils Percent Auto 0.5 % (0-4.4); Hematocrit 41.2 % (37.0-47.0); Hemoglobin 12.8 g/dL (12.0-15.0); Immature Granulocyte Absolute 0.01 K/mm3 (0.00-0.031); Immature Granulocyte Percent A 0.2 % (0-0.5); Lymphocytes Absolute Auto 2.01 K/mm3 (0.9-3.2); Mean Corpuscular HGB Conc 31.1 g/dl (32-36); Mean Corpuscular Hemoglobin 27.5 pg (26-34); Mean Corpuscular Volume 88.6 fl (80-100); Mean Platelet Volume 9.6 fl (7.4-10.4); Monocytes Absolute Auto 0.6 K/mm3 (0.1-0.6); Monocytes Percent Auto 9.1 % (2.6-8.5); Neutrophils Absolute Auto 3.6 K/mm3 (1.3-6.7); Neutrophils Percent Auto 57.6 % (45.5-73.1); Platelet Count Result 336 k/mm3 (150-375); Red Blood Count 4.65 M/mm3 (4.2-5.4); Red Cell Distribution Width 13.1 % (11.5-14.5); White Blood Count 6.3 K/mm3 (4.5-10.0)
[2024-10-13 18:23] LABS: Alanine Aminotransferase 23 U/L (6-35); Albumin Level 4.1 g/dL (3.5-5.1); Alkaline Phosphatase 91 U/L (38-126); Anion Gap 8 mmol/L (4-12); Aspartate Amino Transferase 30 U/L (14-36); Bilirubin,Total 0.3 mg/dL (0.2-1.3); Blood Urea Nitrogen 7 mg/dL (7-17); Calcium 8.9 mg/dL (8.4-10.2); Carbon Dioxide 24 mmol/L (22-30); Chloride 106 mmol/L (98-107); Estimated CRCL calculation 147 ml/min; Estimated Glomerular Filt Rate > 60; Glucose 95 mg/dL (65-110); Potassium 3.8 mmol/L (3.4-5.0); Sodium 138 mmol/L (137-145); Total Protein 7.6 g/dL (6.3-8.2)
[2024-10-13] MEDS: KETOROLAC 15 MG/ML VIAL (*BKC) IV PUSH (20:48)
[2024-10-13] MEDS: SODIUM CHLORIDE 0.9% IV 1,000 ML 999 ML IV CONT (20:48)
--- OUTSIDE RECORDS SUMMARY | 2024-10-13 20:48 | XMS_ITS | Clinical Summary ---
Author Organization [facility] Address [address] [place] [address] Care Team Providers Care Insurance Rater Name Role Phone Jamal Em MD Primary Care Provider [phone] Source Comments [facility],non-owned Affiliates and Associated Physician Practices is amultiple site organization consisting of ambulatory clinics and hospital sitesin [place], [place], [place] and [place]. This disclosure is being madepursuant to the Care Everywhere program and may not contain all information available regarding this patient. Last updated 18.[facility] Allergies Active Allergy Reactions Criticality Noted Date [...] Comments Blood Pressure 116/72 06/08/2019 2:48 PM ACTIVITIES VOLUNTEER Pulse 80 06/08/2019 2:48 PM ACTIVITIES VOLUNTEER Temperature 36.9 C (98.5 F) 06/08/2019 2:48 PM ACTIVITIES VOLUNTEER Respiratory Rate 16 06/08/2019 2:48 PM ACTIVITIES VOLUNTEER Oxygen Saturation 98% 06/08/2019 2:48 PM ACTIVITIES VOLUNTEER Inhaled Oxygen Concentration - - Weight 99.8 kg (220 lb) 06/08/2019 2:48 PM ACTIVITIES VOLUNTEER Height 172.7 cm (5' 8) 06/08/2019 2:48 PM ACTIVITIES VOLUNTEER Body Mass Index 33.45 06/08/2019 2:48 PM ACTIVITIES VOLUNTEER Plan of Treatment Health Maintenance Due Date [...] patient's age to complete this topic Insurance [facility] SELF PAY NO INSURANCE Member Subscriber Plan / Payer (Ef fective for All Dates) Name:Cecile Mayen Member ID:Not on file Relation to Subscriber:Not on file Name:CECILE MAYEN Subscriber ID:Not on file (Home) Address: [address] [place] [id number] Payer ID:Not on file Group ID:Not on file Type:Self Pay Address: [place], [place] Care Teams Insurance Rater Relationship Specialty Start Date End Date Jamal Em MD [address] [place] [id number] PCP - General Family Medicine 08/15/16
[2024-10-13 20:52] LABS: BEDSIDEPREGUCG Negative (Negative)
[2024-10-13 21:02] LABS: Influenza A QL RT-PCR Negative (Negative); Influenza B QL RT-PCR Negative (Negative); RSV RNA, RT-PCR Negative (Negative); SARS-CoV-2 RNA PCR Negative (Negative)
[2024-10-13 21:57] VITALS: BP 111/72; PULSE 60; RESP 18; TEMP 36.9; O2SAT 100
--- NOTE | 2024-10-13 22:46 | PC.NURSE ---
Dr. Corley at bedside updating pt.
[2024-10-13 23:00] VITALS: BP 115/70; PULSE 67; RESP 14; O2SAT 98
== END 2024-10-13 23:18 | disposition home or self-care (01) ==
PROVIDERS: Registered Nurse; Emergency Provider Emergency Medicine
DX: J40 Bronchitis, not specified as acute or chronic (principal); Z20.822 Contact with and (suspected) exposure to COVID-19; E66.9 Obesity, unspecified; Z68.39 Body mass index [BMI] 39.0-39.9, adult; Z90.49 Acquired absence of other specified parts of digestive tract; Z90.79 Acquired absence of other genital organ(s); Z77.22 Contact with and (suspected) exposure to environmental tobacco smoke (acute) (chronic); Z79.3 Long term (current) use of hormonal contraceptives
CPT/HCPCS: 36415; 70450; 71046; 71275; 80053; 81025; 85025; 87637; 96361; 96374; 99284; J1885; J7030; Q9967

== ENCOUNTER 2025-02-17 15:51 | Outpatient (CLI) | payer OTHER, SELFPAY ==
--- NOTE | ~2025-02-17 | US_ITS ---
EXAMINATION: US OB <=14 wk fetus w TV DATE: 02/17/2025 16:14 INDICATION: Amenorrhea. Establish dating of first trimester . TECHNIQUE: Real-time pelvic ultrasound utilizing both a transvaginal and transabdominal probe was performed. The interpreting radiologist was not present for the study. COMPARISON: None. FINDINGS: The uterus measures 8.7 x 4.7 x 4.7 cm. The endometrial complex etutstky64 mm in maximal thickness.There is no evident intrauterine gestational sac. The right ovary measures 3.2 x 2.7 x 3.1 cm. The left ovary measures 1.9 x 1.1 x 1.3 cm. 1.7 cm hypoechoic likely corpus luteum cyst within the right ovary. Vascular flow identified at both ovaries on color Doppler. Small amount of anechoic free fluid at the right adnexa. IMPRESSION: 1. No evident intrauterine gestational sac for which differential would include early, failed or ectopic . Recommend follow-up with serial beta-hCG levels and repeat imaging as clinically indicated. Reviewed, dictated and finalized at location A. IMPRESSION: 1. No evident intrauterine gestational sac for which differential would include early, failed or ectopic . Recommend follow-up with serial beta-hCG l evels and repeat imaging as clinically indicated.
== END 2025-02-17 15:52 | disposition home or self-care (01) ==
LOC: MICIMG 15:52
PROVIDERS: PCP Obstetrics & Gynecology; Visit Provider Obstetrics & Gynecology
DX: N91.2 Amenorrhea, unspecified (principal); Z87.59 Personal history of other complications of pregnancy, childbirth and the puerperium
CPT/HCPCS: 76801; 76817

== ENCOUNTER 2025-02-20 07:14 | Outpatient (CLI) | payer OTHER, SELFPAY ==
[2025-02-20 09:04] LABS: Add Urine Microscopic? YES; Appearance Urine Clear (Clear); Glucose Urine UA Negative (Negative); Hematocrit 39.1 % (37.0-47.0); Hemoglobin 12.2 g/dL (12.0-15.0); Immature Granulocyte Percent A 0.6 % (0-0.5); Leukocyte Esterase Ur Trace LEU/UL (Negative); Lymphocytes Absolute Auto 1.64 K/mm3 (0.9-3.2); Mean Corpuscular HGB Conc 31.2 g/dl (32-36); Mean Corpuscular Hemoglobin 27.8 pg (26-34); Mean Corpuscular Volume 89.1 fl (80-100); Nitrate Urine Negative (Negative); Non Pathogenic Casts 0-2; Nucleated Red Blood Cells Absolute Auto 0.000 K/mm3 (0.0-0.012); Nucleated Red Blood Cells Perc 0.0 % (0.0-0.2); Platelet Count Result 325 k/mm3 (150-375); Red Blood Count 4.39 M/mm3 (4.2-5.4); Specific Grav Ur 1.012 (1.001-1.035); White Blood Count 6.6 K/mm3 (4.5-10.0)
[2025-02-20 09:30] LABS: Hemoglobin A1C 5.3 % (<5.7)
[2025-02-20 09:36] LABS: Alanine Aminotransferase 24 U/L (6-35); Albumin Level 3.7 g/dL (3.5-5.1); Alkaline Phosphatase 89 U/L (38-126); Anion Gap 6 mmol/L (4-12); Aspartate Amino Transferase 24 U/L (14-36); Bilirubin,Total 0.4 mg/dL (0.2-1.3); Blood Urea Nitrogen 6 mg/dL (7-17); Calcium 8.5 mg/dL (8.4-10.2); Carbon Dioxide 24 mmol/L (22-30); Chloride 104 mmol/L (98-107); Cholesterol 172 mg/dL (0-200); Estimated Glomerular Filt Rate > 60; Glucose 131 mg/dL (65-110); HDL Direct 34 mg/dL; Potassium 3.9 mmol/L (3.4-5.0); Sodium 134 mmol/L (137-145); Total Protein 7.2 g/dL (6.3-8.2); Triglycerides 79 mg/dL (<150)
[2025-02-20 09:39] LABS: Glucose 1 Hour PP 50gm Dose 130 mg/dL
[2025-02-20 09:50] LABS: Beta HCG Quantitative 1923.70 mIU/ML
[2025-02-20 09:55] LABS: Syphilis IgG/IgM Antibody Non-Reactive (Nonreactive)
[2025-02-20 09:59] LABS: Hepatitis B Surface Antigen Negative (Negative)
[2025-02-20 10:12] LABS: Thyroid Stimulating Hormone 0.686 uIU/mL (0.465-4.680)
[2025-02-20 10:13] LABS: HIV 1/2 Ab P24 Ag Result Negative (Negative)
[2025-02-20 10:48] LABS: Vitamin B12 233.0 pg/mL (239-931)
[2025-02-21 06:08] LABS: Cytomegalovirus (CMV) Ab, IgG <0.60 U/mL (0.00-0.59)
[2025-02-21 07:09] LABS: Varicella-Zoster Ab, IgG Reactive (Non Reactive)
[2025-02-24 11:09] LABS: Parvovirus B19, IgG 0.1 index (0.0-0.8); Parvovirus B19, IgM 0.1 index (0.0-0.8)
== END 2025-02-20 07:15 | disposition home or self-care (01) ==
LOC: ANHLAB 07:16
PROVIDERS: PCP Family Medicine; Referring Provider Nurse Practitioner; Visit Provider Student in an Organized Health Care Education/Training Program
DX: Z00.00 Encounter for general adult medical examination without abnormal findings (principal); N91.2 Amenorrhea, unspecified; D51.9 Vitamin B12 deficiency anemia, unspecified; E55.9 Vitamin D deficiency, unspecified; R73.9 Hyperglycemia, unspecified
CPT/HCPCS: 36415; 80053; 80061; 81001; 82306; 82607; 82746; 82947; 83036; 84443; 84702; 85025; 86593; 86644; 86703; 86747; 86762; 86787; 86850; 86900; 86901; 87086; 87340; G0432

== ENCOUNTER 2025-02-23 10:41 | Outpatient (CLI) | payer OTHER, SELFPAY ==
[2025-02-23 11:56] LABS: Beta HCG Quantitative 4347.30 mIU/ML
== END 2025-02-23 10:42 | disposition home or self-care (01) ==
PROVIDERS: PCP Family Medicine; Visit Provider Obstetrics & Gynecology
DX: O20.0 Threatened abortion (principal); Z3A.00 Weeks of gestation of pregnancy not specified
CPT/HCPCS: 36415; 84702